=== PATIENT | female | born 1955 | race Caucasian/White ===

== ENCOUNTER 2017-08-18 19:23 | Emergency (ER) | payer OTHER ==
[~2017-08-18] VITALS: Ht 172.7 cm; Wt 97.7 kg
[2017-08-18 19:26] VITALS: BP 177/72; PULSE 63; RESP 16; TEMP 98.4; O2SAT 95
--- NOTE | 2017-08-18 19:56 | RADRPT ---
EXAM DATE/TIME: 08/18/2017 19:40 [facility] COMPARISON: No previous studies available for comparison. INDICATIONS : Left lateral ankle pain after rolling injury. MEDICAL HISTORY : None. SURGICAL HISTORY : None. ENCOUNTER: Initial ACUITY: 1 day PAIN SCORE: 8/10 LOCATION: Left lateral ankle FINDINGS: Three view examination of the left foot demonstrates no soft tissue swelling, dislocation, or fractur e. The tarsal bones appear intact. The interphalangeal and metatarsophalangeal joints are intact. The calcaneus is intact. Bony mineralization is normal. CONCLUSION: Unremarkable examination of the left foot. Sukhi Merlos Jr., MD on August 18, 2017 at 19:53 Board Certified Radiologist. This report was verified electronically.
--- NOTE | 2017-08-18 19:56 | RADRPT ---
EXAM DATE/TIME: 08/18/2017 19:38 [facility] COMPARISON: No previous studies available for comparison. INDICATIONS : Left lateral ankle pain after rolling injury. MEDICAL HISTORY : None. SURGICAL HISTORY : None. ENCOUNTER: Initial ACUITY: 1 day PAIN SCORE: 8/10 LOCATION: Left lateral ankle FINDINGS: Three view exam was performed of the left ankle. The bony structures are in normal alignment. No ev idence of fracture, dislocation, or soft tissue swelling. The ankle mortise is intact. No radiopaqu e foreign bodies are seen. Bony mineralization is normal. CONCLUSION: Unremarkable examination of the left ankle. Sukhi Merlos Jr., MD on August 18, 2017 at 19:53 Board Certified Radiologist. This report was verified electronically.
--- NOTE | 2017-08-18 20:38 | PD ---
HPI Chief Complaint: Injury Time Seen by Provider: 20:22 Travel History International Travel<30 days: No Contact w/Intl Traveler<30days: No Traveled to known affect area: No History of Present Illness HPI This is a 61-year-old female with left foot and ankle pain after she twisted the ankle on uneven cathy in a parking garage. Injury occurred today. She denies head injury or loss of consciousness. The patient is not anticoagulated. He has pain with weightbearing and range of motion of the ankle. Symptom severity is moderate. Relieved with rest and elevation. Denies paresthesia or weakness of the extremity. Denies headache, neck pain, chest pain, shortness breath, abdominal pain. PFSH Past Medical History Cardiovascular Problems: Yes (hyperlipidemia, HTN) Diabetes: Yes Social History Tobacco Use: No Review of Systems Except as stated in HPI: all other systems reviewed are Neg Eyes: No: Visual changes HENT: No: Headaches Cardiovascular: No: Chest Pain or Discomfort Respiratory: No: Shortness of Breath Gastrointestinal: No: Abdominal Pain Genitourinary: No: Dysuria Skin: No Rash Neurologic: No: Weakness Physical Exam Narrative GENERAL: Alert and well-appearing female SKIN: Warm and dry. HEAD: Normocephalic. Atraumatic EYES: Pupils equal, round, reactive to light No injection or drainage. NECK: Supple, trachea midline. No cervical midline tenderness. MUSCULOSKELETAL: No cyanosis. Left ankle: Mild swelling to the lateral malleolus and dorsal aspect of the foot. The joint is stable. 2+ dorsal pedis pulses. Normal sensation. Brisk cap refill. BACK: Nontender without obvious deformity. No CVA tenderness. Data Data Last Documented VS Vital Signs Date Time Temp Pulse Resp B/P (MAP) Pulse Ox O2 Delivery O2 Flow Rate FiO2 08/18/17 20:25 08/18/17 19:26 98.4 63 16 95 Orders Orders Foot, Complete ([id number]) (08/18/17 ) Ankle, Complete ([id number]) (08/18/17 ) [facility] Medical Decision Making Medical Screen Exam Complete: Yes Emergency Medical Condition: Yes Differential Diagnosis Fibular fracture, metatarsal fracture, sprain, contusion Narrative Course 61-year-old female here with left ankle and foot pain after twisting injury today. The extremity is neurovascularly intact. Her x-rays are negative for fracture. Ankle stirrup and crutches provided. Diagnosis Primary Impression: Ankle sprain Qualified Codes: S93.402A - Sprain of unspecified ligament of left ankle, initial encounter Referrals: Primary Care Physician Additional Instructions: Ice and elevate the extremity. Take [id number] ibuprofen 600-800 mg every 6 hours as needed for pain. Alec wrap and crutches as directed Disposition: 01 DISCHARGE HOME Condition: Stable Maria Del Carmen Hutchison Aug 18, 2017 20:37
== END 2017-08-18 20:30 | disposition home or self-care (01) ==
LOC: NEPK 19:23
DX: S93.402A Sprain of unspecified ligament of left ankle, initial encounter (principal); I10 Essential (primary) hypertension; E78.5 Hyperlipidemia, unspecified; E11.9 Type 2 diabetes mellitus without complications; X50.1XXA Overexertion from prolonged static or awkward postures, initial encounter
CPT/HCPCS: 73610; 73630; 99283; E0113; L1906